=== PATIENT | female | born 1970 | race Caucasian/White ===

== ENCOUNTER 2025-02-24 19:33 | Emergency (ER) | payer OTHER ==
[~2025-02-24] VITALS: Ht 170.2 cm; Wt 59.0 kg
[2025-02-24 20:29] VITALS: BP 124/81; TEMP 98.1; O2SAT 98
== END 2025-02-24 20:29 | disposition home or self-care (01) ==
LOC: ER 19:41
DX: H11.31 Conjunctival hemorrhage, right eye (principal)